=== PATIENT | male | born 1990 | race Caucasian/White ===

== ENCOUNTER → 2024-07-15 | Outpatient (REF) | payer OTHER ==
[2024-07-15 08:55] LABS: SEMEN APPEARANCE OPAQUE (OPAQUE); SEMEN VISCOSITY VISCOUS (LIQUID); SEMEN pH 8.5 (7.0-8.0); SPERM CONCENTRATION 37.2 M/ml (>=15.0); WBC CONCENTRATION <=1 M/ml (<=1 M/ml)
== END ==
LOC: M SMT 08:38
PROVIDERS: ATTEND Nurse Practitioner Family
DX: Z31.41 Encounter for fertility testing (principal)